=== PATIENT | female | born 2000 | race Caucasian/White ===

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

== ENCOUNTER 2020-03-11 15:02 | Emergency (ER) | payer MEDICAID ==
[2020-03-11 15:09] VITALS: BP 118/66
[2020-03-11 15:54] LABS: GLUCOSE, URINE (UA) NEGATIVE (NEGATIVE); KETONES,URINE (UA) 15 mg/dL (NEGATIVE); LEUKOCYTE ESTERASE, URINE TRACE (NEGATIVE); NITRITE,URINE NEGATIVE (NEGATIVE); OCCULT BLOOD,URINE SMALL (NEGATIVE); PH,URINE 6.5 PH (5.0-7.5); PROTEIN,URINE 100 mg/dL (NEGATIVE); UROBILINOGEN,URINE 1 (NORMAL) E.U./dL (NORMAL)
[2020-03-11 15:58] LABS: BILIRUBIN,URINE NEGATIVE (NEGATIVE); CLARITY,URINE CLOUDY (CLEAR); HCG UR QUAL NEGATIVE; ICTOTEST,URINE NEGATIVE
[2020-03-11 15:59] LABS: BACTERIA,URINE Few /HPF (None Seen); CRYSTALS,URINE 6-10 Calcium Oxalate /LPF; SQUAMOUS EPITHELIAL CELL,UR MANY Squamous (<= Few)
[2020-03-11] MEDS ORDERED: SULFAMETH/TRIMETH DS 800/160 MG TABLET PO STA (16:03)
--- NOTE | 2020-03-11 16:06 | ED Physician Documentation ---
History of Present Illness - Stated complaint Stated Complaint: FEMALE - Chief complaint Chief Complaint: UTI - History obtained from History obtained from: Patient - Additonal information Additional information: Patient comes emergency department complaining of dysuria couple of days. She states she is also had back pain, but she does have some chronic back pain so she is not sure whether this is from that or potentially UTI. Patient states she has had urinary tract infections before and this feels similar. She denies any vaginal discharge or bleeding. She is not known to be and does not think she could be. Patient states she is been nauseated but had no vomiting. No other complaints at this time. Review of Systems Ten Systems: 10 systems reviewed and negative Constitutional: reports: Reviewed and negative Eyes: reports: Reviewed and negative Ears: reports: Reviewed and negative Nose: reports: Reviewed and negative Throat: reports: Reviewed and negative Cardiac: reports: Reviewed and negative Respiratory: reports: Reviewed and negative GI: reports: Abdominal Pain, Nausea : reports: Dysuria, Frequency Skin: reports: Reviewed and negative Musculoskeletal: reports: Reviewed and negative Neurologic: reports: Reviewed and negative Psychiatric: reports: Reviewed and negative Endocrine: reports: Reviewed and negative Immunocompromised: reports: Reviewed and negative PD PAST MEDICAL HISTORY - Past Medical History Past Medical History: No Cardiovascular: None Respiratory: None Endocrine/Autoimmune: None Psych: Depression, Anxiety Musculoskeletal: Other - Past Surgical History Past Surgical History: Yes General: Appendectomy HEENT: Tonsil/Adenoidectomy - Present Medications Home Medications: Ambulatory Orders Medication Instructions Recorded Confirmed Albuterol Sulfate [Proair Hfa 8.5 gm IN PRN PRN 11/07/17 11/07/17 Inhaler] Cyclobenzaprine [Flexeril] 10 mg PO TID PRN #20 tablet 11/07/17 Lidocaine Patch 5% [Lidoderm Patch] 1 each TOP DAILY PRN #10 patch 11/07/17 Sertraline [Zoloft] 50 mg PO DAILY 11/07/17 11/07/17 hydrOXYzine HCL [Hydroxyzine HCl] 10 mg PO DAILY 11/07/17 11/07/17 Phenazopyridine HCl [Pyridium] 200 mg PO TID PRN #6 tablet 03/11/20 Sulfamethox/Trimeth 800/160 1 each PO BID #14 tablet 20 [Bactrim Ds 800/160] - Allergies Allergies/Adverse Reactions: Allergies Allergy/AdvReac Type Severity Reaction Status Date / Time lactose AdvReac Cramps Verified 03/11/20 15:09 - Social History Does the pt smoke?: Yes Smoking Status: Never smoker Does the pt drink ETOH?: No Does the pt have substance abuse?: No - Immunizations Immunizations are current?: No Immunizations: No immun - POLST Patient has POLST: No PD ED PE NORMAL - Vitals Vital signs reviewed: Yes - General General: Alert and oriented X 3, No acute distress - HEENT HEENT: Atraumatic, PERRL, EOMI, Moist mucous membranes - Neck Neck: Supple, no meningeal sign - Cardiac Cardiac: RRR, No murmur, Strong equal pulses - Respiratory Respiratory: No respiratory distress, Clear bilaterally - Abdomen Abdomen: Soft, Non tender, Non distended - Back Back: No CVA TTP, Other (Patient has mild tenderness of the bilateral lumbar paraspinal musculature of her lower back.) - Derm Derm: Normal color, Warm and dry, No rash - Extremities Extremities: No deformity, No edema - Neuro Neuro: Alert and oriented X 3, Other (Grossly intact) - Psych Psych: Normal mood, Normal affect Results - Vitals Vitals: Vital Signs - 24 hr 03/11/20 15:04 Temperature 36.5 C Heart Rate 102 H Respiratory 16 Rate Blood Pressure 118/66 O2 Saturation 100 Oxygen O2 Source Room air - Labs Labs: Laboratory Tests 03/11/20 15:47 Urine Color YELLOW Urine Clarity CLOUDY Urine pH 6.5 Ur Specific [place] >=1.030 H Urine Protein 100 H Urine Glucose (UA) NEGATIVE Urine Ketones 15 H Urine Occult Blood SMALL H Urine Nitrite NEGATIVE Urine Bilirubin NEGATIVE Urine Urobilinogen 1 (NORMAL) Ur Leukocyte Esterase TRACE H Urine RBC 6-10 H Urine WBC 6-10 H Ur Squamous Epith Cells MANY Squamous H Urine Crystals 6-10 Calcium Oxalate Urine Bacteria Few Ur Microscopic Review INDICATED Urine Culture Comments NOT INDICATED Urine HCG, Qual NEGATIVE PD MEDICAL DECISION MAKING - ED course Complexity details: reviewed results, re-evaluated patient, considered differential, d/w patient ED course: Patient was worked up with urinalysis, which was found to be positive. She was started on Bactrim in the emergency department and given prescription for Bactrim and Pyridium. We have discussed home management of the symptoms, and the need for follow-up, and the usual indications for return. Departure - Departure Disposition: 01 Home, Self Care Clinical Impression: Urinary tract infection Qualifiers: Urinary tract infection type: acute cystitis Hematuria presence: without hematuria Qualified Code(s): N30.00 - Acute cystitis without hematuria Condition: Stable Instructions: ED UTI Cystitis Female Prescriptions: Phenazopyridine HCl [Pyridium] 200 mg PO TID PRN #6 tablet PRN Reason: dysuria Sulfamethox/Trimeth 800/160 [Bactrim Ds 800/160] 1 each PO BID #14 tablet
== END 2020-03-11 16:11 | disposition home or self-care (01) ==
LOC: ED 15:02
DX: N30.00 Acute cystitis without hematuria (principal)
CPT/HCPCS: 81001; 81025; 99283; A9270; 81003; 87086